=== PATIENT | female | born 1990 | race Caucasian/White ===

== ENCOUNTER 2024-02-05 14:57 | Emergency (ER) | payer BC, SELFPAY ==
[2024-02-05 15:06] VITALS: BP 107/72
--- NOTE | 2024-02-05 16:42 | ED.GENMED ---
History of Present Illness
General
Chief Complaint: Musculo-Skeletal Complaint
Source: patient
Time Seen by Provider: 02/05/24 15:56
Travel History
Have you had any contact with someone who has COVID-19?: No
Do you have any symptoms of coronavirus? Fever > 100 degrees, chills, cough, shortness of breath, sore throat, loss of taste or smell, muscle aches, or headache?: No
History of Present Illness
History of Present Illness:
33-year-old female presenting to the emergency department for evaluation after accidentally dropping a heavy umbrella stand onto her dorsal left foot. Patient sustained a 1 cm curvilinear laceration overlying the distal first metatarsal. Tetanus
vaccine is up-to-date and no other injuries were sustained. Bleeding was controlled with light pressure.
Past History
Past History
ED Past Medical History: None
ED Past Surgical History: Tonsilectomy
Social History
Tobacco: Non-smoker
Alcohol: Occasional
Drug: None
Personal: Single
Living: with family
Employment: Employed
Review of Systems
Review of Systems
All Other Systems: ROS reviewed and negative except as documented in HPI and ROS
Phy Exam
Physical Exam
Physical Exam:
GENERAL: Alert , in no apparent distress
EYE: conjunctiva clear
Head: Normocephalic atraumatic
NECK: Supple,
ENT: mmm.
LUNGS: no acute respiratory distress
NEUROLOGICAL: Alert and oriented
SKIN: Warm and dry, 1 cm curvilinear laceration to the dorsal aspect of the distal first metatarsal. No active bleeding. Tenderness directly over this area. Remainder of extremity is within normal limits.
MUSCULOSKELETAL: well perfused.
PSYCH: Normal and appropriate interaction.
Scores
Heart Failure Risk
Heart Failure Risk Score: Not Applicable
Heart Score for Chest Pain Patients
STEMI patient?: Not applicable
Withdrawal Assessment of Alcohol
Withdrawal Assessment Completed?: Not applicable
Course
Orders/Labs/Results
Orders:
Orders
02/05/24 15:10
Foot, Left 3 View [CR Foot - Left Min 3 Views] Urgent
Comment:
Reason For Exam: pain
Vital Signs
Initial and Last Documented VS:
Initial Vital Signs
Temp Pulse Resp BP Pulse Ox
98.9 F 80 18 107/72 99
02/05/24 15:06 02/05/24 15:06 02/05/24 15:06 02/05/24 15:06 02/05/24 15:06
Last Documented Vital Signs
Temp Pulse Resp BP Pulse Ox
98.9 F 80 18 107/72 99
02/05/24 15:06 02/05/24 15:06 02/05/24 15:06 02/05/24 15:06 02/05/24 15:06
Procedures
Laceration Closure
Left Dorsal Foot:
Status of Wound: clean
Size of Wound in cm: 1
Description of Wound Edges: sharp
Preparation: cleaned with saline
Anesthesia: 1% Lidocaine
Revision/Debridement: routine- no revision
Skin Closure Material: 4-0 nylon
Number of sutures: 3
MDM/Problems Addressed
MDM/Problems Addressed:
Laceration repaired as above. X-ray ordered to rule out fracture versus contusion with contusion to be suspected as most likely diagnosis. Patient's tetanus vaccine is up-to-date. Will be stable for discharge following x-ray.
*Pulse Oximetry
Patient hypoxic: no
*Critical Care Note
Total Time (30-74mins, 75-104mins- exclusive of procedures): Not Applicable
Comment
Comment:
Patient did not want wish to wait for x-ray any further and preferred to be discharged home. A dry dressing with nonadherent gauze pad was placed over top the wound. Suture removal 10 to 12 days. Patient is aware of return precautions but
otherwise stable for discharge home.
ED Attending Note
-
Portions of this chart may have been created with voice recognition software.� Occasional wrong word or��sound alike� substitutions may have occurred due to the inherent limitations of voice recognition software.
Discharge Plan
Departure
Patient Disposition: Home (Routine Discharge)
Date of Disposition: 02/05/24
Time of Disposition: 16:59
Patient with high blood pressure during this ER visit?: No
Discharge Problem:
Laceration of foot, left, Contusion of foot, left
Instructions: Laceration Repair With Stitches (DC)
Referrals:
Krystal Vazquez DO [Family Provider] -
Activity Restrictions/Additional Instructions:
Suture removal in 10-12 days
Interventions
Interventions:
*ED COVID-19 Vaccine History Last Done: 02/05/24 15:09
Discharge Date and Time
Print Language: THAI
== END 2024-02-05 17:43 | disposition home or self-care (01) ==
LOC: EMR 14:57
PROVIDERS: EMERGENCY PHYSICIAN Emergency Medicine; FAMILY PHYSICIAN Family Medicine
DX: S91.312A Laceration without foreign body, left foot, initial encounter (principal); S90.32XA Contusion of left foot, initial encounter; W22.8XXA Striking against or struck by other objects, initial encounter
CPT/HCPCS: 99282; 12001